=== PATIENT | female | born 1985 | race Caucasian/White ===

== ENCOUNTER 2020-12-22 07:29 | Day surgery (SDC) | payer BC ==
[~2020-12-22 07:29] MED LIST: Lactated Ringers 1,000 ML IV SCH; Lidocaine 2% 5 ML SDV ONE; Midazolam 1 MG/ML 2 ML SDV ONE; Propofol 200 MG/20 ML SDV ONE; Sodium Chloride 0.9% 10 ML SDV IV PRN; Sodium Chloride 0.9% 10 ML Syringe FLUSH PRN; Sodium Chloride 0.9% 2.5 ML Syringe FLUSH PRN; ceFAZolin 1 GM in Premix Bag 1 BAG IV SCH; fentaNYL 100 MCG/2 ML SDV ONE
--- NOTE | 2020-12-22 08:08 | PCM.PREANE ---
Preanesthetic Assessment - Anesthesia/Transfusion/Family Hx Anesthesia History: Prior Anesthesia Without Reaction Family History of Anesthesia Reaction: No Transfusion History: Prior Transfusion Without Reaction Intubation History: Unknown - Review of Systems General: No Symptoms Pulmonary: No Symptoms Cardiovascular: No Symptoms Gastrointestinal: No Symptoms Neurological: No Symptoms Other: Reports: None - Physical Assessment Vital Signs: Last Vital Signs Temp 36.8 C 12/22/20 07:46 Pulse 76 12/22/20 07:46 Resp 14 12/22/20 07:46 BP 122/83 12/22/20 07:46 Pulse Ox 98 12/22/20 07:46 Height: 5 ft 3 in Weight: 43.091 kg ASA Class: 2 Mental Status: Alert & Oriented x3 Airway Class: Mallampati = 1 Dentition: Reports: Normal Dentition (tiny chip gront upper incisor) Thyro-Mental Finger Breadths: 3 Mouth Opening Finger Breadths: 3 ROM/Head Extension: Full Lungs: Clear to Auscultation, Normal Respiratory Effort Cardiovascular: Regular Rate, Regular Rhythm - Allergies Allergies/Adverse Reactions: Allergies Allergy/AdvReac Type Severity Reaction Status Date / Time morphine Allergy Itching Verified 12/17/20 12:09 - Blood Blood Available: No - Anesthesia Plan Pre-Op Medication Ordered: None - Acknowledgements Anesthesia Type Planned: MAC (general anesthesia back-up plan) Pt an Appropriate Candidate for the Planned Anesthesia: Yes Alternatives and Risks of Anesthesia Discussed w Pt/Guardian: Yes Pt/Guardian Understands and Agrees with Anesthesia Plan: Yes PreAnesthesia Questionnaire HEENT History: Reports: Other (See Below) Other HEENT History: wears glasses Cardiovascular History: Reports: None Respiratory History: Reports: None Gastrointestinal History: Reports: None Genitourinary History: Reports: None Musculoskeletal History: Reports: Arthritis Neurological History: Reports: None Psychiatric History: Reports: Anxiety Endocrine/Metabolic History: Reports: None Hematologic History: Reports: Anemia, Blood Transfusion(s) Immunologic History: Reports: None Oncologic (Cancer) History: Reports: Uterine Dermatologic History: Reports: None - Past Surgical History Head Surgeries/Procedures: Reports: None HEENT Surgical History: Reports: Oral Surgery Cardiovascular Surgical History: Reports: None Respiratory Surgical History: Reports: None GI Surgical History: Reports: None Female Surgical History: Reports: Hysterectomy (11/20/21), Salpingo- Oophorectomy Endocrine Surgical History: Reports: None Neurological Surgical History: Reports: None Musculoskeletal Surgical History: Reports: None Oncologic Surgical History: Reports: Other (See Below) Other Oncologic Surgeries/Procedures: total abd hysterectomy Dermatological Surgical History: Reports: None - SUBSTANCE USE Tobacco Use Status *Q: Never Tobacco User - HOME MEDS Home Medications: Home Meds Ergocalciferol (Vitamin D2) [Vitamin D2] 50 mcg PO DAILY 12/17/20 [History] Ferrous Sulfate 324 mg PO DAILY 12/17/20 [History] Ibuprofen 1 tab PO ASDIRECTED PRN 12/17/20 [History] Multivitamin 1 tab PO DAILY 12/17/20 [History] - CURRENT (IN HOUSE) MEDS Current Meds: Current Medications Lactated Ringer's (Ringers, Lactated) 1,000 mls @ 125 mls/hr IV ASDIRECTED SALVATORE Sodium Chloride (Saline Flush) 2.5 ml FLUSH ASDIRECTED PRN PRN Reason: Keep Vein Open Sodium Chloride (Normal Saline) 10 ml IV ASDIRECTED PRN PRN Reason: IV Use Discontinued Medications Fentanyl (Sublimaze) Confirm Administered Dose 100 mcg .ROUTE .STK-MED ONE Stop: 12/22/20 07:19 Cefazolin Sodium/Dextrose 1 gm (/ Premix) 50 mls @ 100 mls/hr IV ONETIME SALVATORE Stop: 12/21/20 14:00 Lidocaine (Xylocaine-Mpf 2%) Confirm Administered Dose 5 ml .ROUTE .STK-MED ONE Stop: 12/22/20 07:18 Midazolam HCl (Versed 1 Mg/Ml) Confirm Administered Dose 2 mg .ROUTE .STK-MED ONE Stop: 12/22/20 07:19 Propofol (Diprivan 20 Ml) Confirm Administered Dose 400 mg .ROUTE .STK-MED ONE Stop: 12/22/20 07:19
[2020-12-22] MEDS ORDERED: ceFAZolin 1 GM Vial ONE (09:08)
[2020-12-22] MEDS ORDERED: Sodium Chloride 0.9% 20 ML ONE (09:08)
[2020-12-22] MEDS ORDERED: Bupivacaine 0.5% 10 ML SDV ONE (09:10)
[2020-12-22] MEDS ORDERED: Heparin Sodium 100 Units/ML 3 ML Syringe ONE (09:11)
[2020-12-22] MEDS ORDERED: Iopamidol 408 MG/ML 20 ML SDV ONE (09:11)
[2020-12-22] MEDS ORDERED: Octyl 2-Cyanoacrylate 1 Tube ONE (09:12)
[2020-12-22] MEDS ORDERED: Glycopyrrolate 0.2 MG/ML SDV ONE ×2 (09:22→09:24)
--- NOTE | 2020-12-22 10:18 | PCM.OPNOTE ---
- General Post-Op/Procedure Note Date of Surgery/Procedure: 12/22/20 Operative Procedure(s): Right IJ port a cath Findings: right internal jugular port Pre Op Diagnosis: Endometrial cancer Post-Op Diagnosis: same Anesthesia Technique: Local, MAC Primary Surgeon: Herminia Schrader Fluid Replacement, Intraop: 800 EBL in mLs: 5 Condition: Good
--- NOTE | 2020-12-22 10:28 | PCM.POSTAN ---
POST ANESTHESIA ASSESSMENT - MENTAL STATUS Mental Status: Alert, Oriented - VITAL SIGNS Vital Signs: Last Vital Signs Temp 36.9 C 12/22/20 10:07 Pulse 93 12/22/20 10:23 Resp 18 12/22/20 10:23 BP 142/94 H 12/22/20 10:23 Pulse Ox 99 12/22/20 10:23 - RESPIRATORY Respiratory Status: Respiratory Rate WNL, Airway Patent, O2 Saturation Stable - CARDIOVASCULAR CV Status: Pulse Rate WNL, Blood Pressure Stable - GASTROINTESTINAL GI Status: No Symptoms - PAIN Pain Score: 0 - POST OP HYDRATION Hydration Status: Adequate & Stable - OBSERVATIONS Free Text/Narrative:: No anesthesia problems
--- NOTE | 2020-12-22 10:48 | PCM48HPAN ---
Post Anesthesia Note - EVALUATION WITHIN 48HRS OF ANESTHETIC Vital Signs in Normal Range: Yes Patient Participated in Evaluation: Yes Respiratory Function Stable: Yes Airway Patent: Yes Cardiovascular Function Stable: Yes Hydration Status Stable: Yes Pain Control Satisfactory: Yes Nausea and Vomiting Control Satisfactory: Yes Mental Status Recovered: Yes Vital Signs: Last Vital Signs Temp 36.6 C 12/22/20 10:25 Pulse 84 12/22/20 10:25 Resp 14 12/22/20 10:25 BP 143/85 H 12/22/20 10:25 Pulse Ox 97 12/22/20 10:25 - COMMENTS/OBSERVATIONS Free Text/Narrative:: No anesthesia problems
--- NOTE | 2020-12-22 10:50 | CR ---
INDICATION: Port-A-Cath placement COMPARISON: None TECHNIQUE: Single-view portable chest radiograph FINDINGS: TUBES AND LINES: Right IJ port ending in the SVC HEART AND MEDIASTINUM: The heart size is normal. The mediastinal contour appears normal for patient age. LUNGS AND PLEURAL SPACES: The lungs appear normal.The pleural spaces are unremarkable. OSSEOUS STRUCTURES: Age-appropriate appearance. No acute focal finding. IMPRESSION: Right IJ port ending in the SVC. The lungs and pleural spaces appear normal. Dictated by Sourav Mccann MD @ Dec 22 2020 10:47AM Signed by Dr. Sourav Mccann @ Dec 22 2020 10:48AM
--- NOTE | 2020-12-22 10:52 | CR ---
Indication: Port placement Technique: Fluoroscopy provided by the department of diagnostic imaging during a procedure Comparison: None Findings: Fluoroscopy was provided during the placement of a port. The images show a right IJ port ending in the distal SVC. Complete postprocedure imaging by chest radiography advised Impression: Fluoroscopy provided during a port placement procedure Dictated by Sourav Mccann MD @ Dec 22 2020 10:48AM Signed by Dr. Sourav Mccann @ Dec 22 2020 10:49AM
--- NOTE | 2020-12-23 14:13 | OR ---
SURGEON: HERMINIA SCHRADER MD DATE OF PROCEDURE: 12/22/2020 PREOPERATIVE DIAGNOSIS: Endometrial cancer. POSTOPERATIVE DIAGNOSIS: Endometrial cancer. PROCEDURE PERFORMED: Right internal jugular Port-A-Cath placement. PRIMARY SURGEON: Herminia Schrader MD ANESTHESIA: MAC, local. FLUIDS: 800 mL of crystalloid. ESTIMATED BLOOD LOSS: 5 mL. FINDINGS: Uncomplicated placement of a right internal jugular Port-A-Cath. COMPLICATIONS: None. INDICATIONS: The patient is a 35-year-old female who was recently diagnosed with endometrial cancer. She has undergone a total abdominal hysterectomy and is in need of a port for chemotherapy treatment. I explained the procedure, expected perioperative course, and the risks. The patient verbalized understanding and wishes to proceed. PROCEDURE IN DETAIL: The patient was brought into the OR and placed on the OR table in supine position. A time-out was completed verifying the patient's name, age, date of , allergies, and procedure to be performed. A roll was placed on the patient's shoulders and both arms were tucked to the patient's side. An ultrasound was brought into the field, and I verified the vascular anatomy of the right side of the neck. The neck and chest were prepped and draped in usual standard fashion. Using the ultrasound, I reverified the vascular anatomy on the right side of the neck. I could clearly see the right internal jugular vein and right carotid. I anesthetized the area overlying the right internal jugular vein and the port insertion site on the anterior chest wall with 0.5% Marcaine plain. Using ultrasound guidance, I placed a guide needle into the right internal jugular vein. A good return of venous blood was noted. A guidewire was placed down the vein into the superior vena cava. It was secured to the drapes. C-arm was brought in to verify placement of the guidewire into the correct position. This was all done with the patient in Trendelenburg position. I then turned my attention to the right anterior chest wall. Using a 15 blade, I made a 3 cm incision just lateral to the midclavicular line. Cautery was used to dissect down to the level of subcutaneous fat. I dissected down to the chest wall and created a subcutaneous pocket. Using a tunneling device, I tunneled the catheter tubing from the anterior chest wall site up to the guidewire insertion site on the neck. A vascular sheath and dilator were placed over the guidewire. Using fluoroscopic guidance, I dilated up my vascular tract. The dilator and guidewire were removed. The catheter tubing was placed down the vascular sheath. The vascular sheath was then removed. Using fluoroscopy, I guided the catheter tubing into the superior vena cava at the atriocaval junction. X-rays of this were taken and saved. I then accessed my catheter tubing. A good return of venous blood was noted and the catheter tubing was flushed with injectable saline. The catheter tubing was then trimmed to fit and placed over the Port-A-Cath device. The port was then placed into the chest wall. I accessed the Port-A-Cath device using a Steel needle. A good return of venous blood was noted. I locked the catheter tubing with 3 mL of heparinized saline. The port device was then secured to the chest wall with interrupted 2-0 Prolene sutures on either side of the port. The chest wall site was closed with a running layer of 3-0 Vicryl suture. The skin was closed with a running 4-0 Monocryl stitch. The insertion site on the neck was closed with an interrupted 4-0 Monocryl suture. Dermabond and sterile dressings were applied. The patient tolerated the procedure well and was taken to PACU in stable condition. A postoperative chest x-ray was taken that showed no acute complications. The patient tolerated the procedure well. All counts were complete and correct at the end of the case. SAMRA CASTREJON /[id number]
== END 2020-12-22 10:50 | disposition home or self-care (01) ==
LOC: MW.SDS 07:29
PROVIDERS: ATTEND Surgery
DX: C54.1 Malignant neoplasm of endometrium (principal); Z88.5 Allergy status to narcotic agent; Z79.899 Other long term (current) drug therapy; Z98.890 Other specified postprocedural states; Z87.891 Personal history of nicotine dependence
CPT/HCPCS: 36561; 71045; 76000; A9270; J0690; J1642; J2001; J2250; J2704; J3010; J3490; J7120; Q9966; 00300